=== PATIENT | male | born 1970 | race Caucasian/White ===

== ENCOUNTER 2020-04-10 19:06 | Emergency (ER) | payer SELFPAY ==
--- NOTE | 2020-04-10 19:57 | RAD REPORT ---
EXAM DESCRIPTION: RAD - Chest Single View - 04/10/2020 7:52 pm CLINICAL HISTORY: Congestion;Cough Chest pain. COMPARISON: No comparisons FINDINGS: Portable technique limits examination quality. The lungs are grossly clear. The heart is normal in size. No displaced fractures. IMPRESSION: No acute intrathoracic process suspected.
[2020-04-10 21:41] LABS: SARS-COV-2 RT PCR POSITIVE (NEGATIVE)
--- NOTE | 2020-04-10 22:04 | ER ---
Nurse's Notes [facility] Name: Dustin Cast Age: 49 yrs Sex: Male : 1970 Arrival Date: 04/10/2020 Time: 19:14 Bed 23 Private MD: Diagnosis: Coronavirus infection, unspecified Presentation: 04/10 19:18 Chief complaint: Patient states: productive cough and congestion x 1 week. Fever today. 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 Coronavirus screen: congestion, cough unrelated to allergies, fever, Client presents with at least one sign or symptom that may indicate coronavirus-19. Standard/surgical mask placed on the client. Provider contacted for isolation considerations. Ebola Screen: Patient negative for fever greater than or equal to 101.5 degrees Fahrenheit, and additional compatible Ebola Virus Disease symptoms Patient denies exposure to infectious person. Patient denies travel to an Ebola-affected area in the 21 days before illness onset. No symptoms or risks identified at this time. Initial Sepsis Screen: Does the patient meet any 2 criteria? No. Patient's initial sepsis screen is negative. Does the patient have a suspected source of infection? No. Patient's initial sepsis screen is negative. Risk Assessment: Do you want to hurt yourself or someone else? Patient reports no desire to harm self or others. Onset of symptoms was April 10, 2020. 19:18 Method Of Arrival: Ambulatory ca1 19:18 Acuity: ONIEL 3 ca1 Historical: - Allergies: 19:20 No Known Allergies; ca1 - Home Meds: 19:20 None [Active]; ca1 - PMHx: 19:20 None; ca1 - PSHx: 19:20 None; ca1 - Immunization history:: Flu vaccine is not up to date. - Social history:: Smoking status: Patient denies any tobacco usage or history of. Screenin:40 Abuse screen: Denies threats or abuse. Denies injuries from another. Nutritional zb screening: No deficits noted. Tuberculosis screening: No symptoms or risk factors identified. Fall Risk None identified. Assessment: 21:35 General: Appears in no apparent distress. uncomfortable, Behavior is calm, cooperative, zb appropriate for age, Reports chills for >3 days, feeling ill for > 3 days, fatigue for >3 days. Pain: Complains of pain in mid-sternal area Pain does not radiate. Pain currently is 3 out of 10 on a pain scale. Quality of pain is described as heavy, Pain began w/ cough Is episodic, Aggravated by coughing. Neuro: Level of Consciousness is awake, alert, obeys commands, Oriented to person, place, time, situation. Cardiovascular: Heart tones S1 S2 present Capillary refill < 3 seconds in bilateral fingers Patient's skin is warm and dry. Respiratory: Airway is patent Respiratory effort is even, unlabored, Respiratory pattern is regular, symmetrical, Breath sounds are clear bilaterally. Respiratory: Reports cough that is hacking, persistent pain with cough last Wednesday. GI: Abdomen is. : No signs and/or symptoms were reported regarding the genitourinary system. EENT: No signs and/or symptoms were reported regarding the EENT system. Derm: Skin is intact, is healthy with good turgor, Skin is dry, Skin is normal. Derm: Musculoskeletal: Range of motion: intact in all extremities. 21:42 Reassessment: notified provider that patient is covid positive. zb 22:10 Reassessment: d/c pending completion of IM injection time. zb Vital Signs: 19:18 BP 139 / 89; Pulse 89; Resp 16 S; Temp 97.7(TE); Pulse Ox 99% on R/A; Weight 77.11 kg ca1 (R); Height 5 ft. 7 in. (170.18 cm) (R); Pain 0/10; 21:41 BP 131 / 95; Pulse 73; Resp 16; Pulse Ox 97% on R/A; zb 19:18 Body Mass Index 26.63 (77.11 kg, 170.18 cm) ca1 ED Course: 19:14 Patient arrived in ED. ca1 19:19 Triage completed. ca1 19:20 Arm band placed on right wrist. ca1 19:52 Chest Single View In Process Unspecified. EDMS 21:13 Sachin Bennett PA is PHCP. jmm 21:13 Judson Quintanilla MD is Attending Physician. jmm 21:35 Eun Mcrae RN is Primary Nurse. zb 21:41 Patient has correct armband on for positive identification. Bed in low position. Call zb light in reach. Side rails up X 1. Pulse ox on. NIBP on. 22:20 No provider procedures requiring assistance completed. Patient did not have IV access zb during this emergency room visit. Administered Medications: 22:10 Drug: Decadron 10 mg Route: IM; Site: left deltoid; zb 22:20 Follow up: Response: No adverse reaction zb Outcome: 22:04 Discharge ordered by . leon 22:21 Discharged to home ambulatory. zb 22:21 Condition: stable 22:21 Discharge instructions given to patient, Instructed on discharge instructions, follow up and referral plans. medication usage, Demonstrated understanding of instructions, follow-up care, medications, Prescriptions given X 3. 22:29 Patient left the ED. zb Signatures: Dispatcher [employer] EDMS Sachin Bennett PA PA jmm Acob, Cheryl, RN RN Eun Mancilla RN RN ryder
--- NOTE | 2020-04-10 22:04 | EDPHYS ---
Physician Documentation [facility] Name: Dustin Cast Age: 49 yrs Sex: Male : 1970 Arrival Date: 04/10/2020 Time: 19:14 Bed 23 Private MD: ED Physician Judson Quintanilla HPI: 04/10 22:01 This 49 yrs old Male presents to ER via Ambulatory with complaints of Cough. jmm 22:01 The patient or guardian reports cough. Onset: The symptoms/episode began/occurred jmm gradually, 1 week(s) ago. Modifying factors: The symptoms are alleviated by nothing, the symptoms are aggravated by nothing. Associated signs and symptoms: Pertinent positives: fever, Pertinent negatives:. This is a 49 year old male with no chronic medical conditions that presents to the ED with complaints of cough and fever for approx 1 week. Patient states today he has felt most fatigued. Denies vomiting, diarrhea, or SOB. . Historical: - Allergies: 19:20 No Known Allergies; ca1 - Home Meds: 19:20 None [Active]; ca1 - PMHx: 19:20 None; ca1 - PSHx: 19:20 None; ca1 - Immunization history:: Flu vaccine is not up to date. - Social history:: Smoking status: Patient denies any tobacco usage or history of. ROS: 22:01 Constitutional: Positive for fatigue, fever. jmm 22:01 Respiratory: Positive for cough. 22:01 All other systems are negative. Exam: 22:01 Constitutional: This is a well developed, well nourished patient who is awake, alert, jmm and in no acute distress. Head/Face: atraumatic. Eyes: EOMI, no conjunctival erythema appreciated ENT: Moist Mucus Membranes Neck: Trachea midline, Supple Chest/axilla: Normal chest wall appearance and motion. Cardiovascular: Regular rate and rhythm. No edema appreciated Respiratory: Normal respirations, no respiratory distress appreciated Abdomen/GI: Non distended, soft Back: Normal ROM Skin: General appearance color normal MS/ Extremity: Moves all extremities, no obvious deformities appreciated, no edema noted to the lower extremities Neuro: Awake and alert, normal gait Psych: Behavior is normal, Mood is normal, Patient is cooperative and pleasant Vital Signs: 19:18 BP 139 / 89; Pulse 89; Resp 16 S; Temp 97.7(TE); Pulse Ox 99% on R/A; Weight 77.11 kg ca1 (R); Height 5 ft. 7 in. (170.18 cm) (R); Pain 0/10; 21:41 BP 131 / 95; Pulse 73; Resp 16; Pulse Ox 97% on R/A; zb 19:18 Body Mass Index 26.63 (77.11 kg, 170.18 cm) ca1 MDM: 21:14 Patient medically screened. emy 22:03 Data reviewed: vital signs, nurses notes. Counseling: I had a detailed discussion with leon the patient and/or guardian regarding: the presence of at least one elevated blood pressure reading (>120/80) during this emergency department visit, lab results, radiology results, the need for outpatient follow up, to return to the emergency department if symptoms worsen or persist or if there are any questions or concerns that arise at home. ED course: Patient is alert and non toxic in appearance in the ED. No signs of resp distress appreciated. Patient is given strict return precautions. patient understood and agrees with the plan of care. . 04/10 19:37 Order name: Chest Single View; Complete Time: 21:13 EDMS 04/10 21:42 Order name: COVID-19/FLU A+B; Complete Time: 21:49 EDMS Administered Medications: 22:10 Drug: Decadron 10 mg Route: IM; Site: left deltoid; zb 22:20 Follow up: Response: No adverse reaction zb Disposition: 04/11 06:45 Co-signature as Attending Physician, Judson Quintanilla MD I agree with the assessment and [facility] plan of care. Disposition: 04/10/20 22:04 Discharged to Home. Impression: Coronavirus infection, unspecified. - Condition is Stable. - Discharge Instructions: COVID-19. - Prescriptions for ivermectin 3 mg Oral tablet - take 6 tablet by ORAL route as directed one dose now and another dose on day 3; 12 tablet. Prednisone 20 mg Oral Tablet - take 3 tablet by ORAL route once daily for 5 days; 15 tablet. Albuterol Sulfate 90 mcg/actuation - inhale 1-2 puff by INHALATION route every 4-6 hours; 1 Inhaler. - Medication Reconciliation Form, Thank You Letter, Antibiotic Education, Prescription Opioid Use, Work release form form. - Follow up: Private Physician; When: 2 - 3 days; Reason: Recheck today's complaints, Continuance of care, Re-evaluation by your physician. Signatures: Dispatcher [employer] EDCT Judson Quintanilla MD MD cha Mickail, Joel, PA PA jmm Acob, Cheryl, RN RN Eun Mancilla RN RN zb Corrections: (The following items were deleted from the chart) 04/10 19:37 19:22 Chest Pa And Lat (2 Views)+RAD.RAD.BRZ ordered. EDMS EDMS 20:43 19:22 CORONAVIRUS+MR.LAB.BRZ ordered. EDMS EDMS 22:29 22:04 04/10/2020 22:04 Discharged to Home. Impression: Coronavirus infection, zb unspecified. Condition is Stable. Forms are Medication Reconciliation Form, Thank You Letter, Antibiotic Education, Prescription Opioid Use. Follow up: Private Physician; When: 2 - 3 days; Reason: Recheck today's complaints, Continuance of care, Re-evaluation by your physician. leon
[2020-04-10] MEDS ORDERED: dexAMETHasone 10 MG/ML VIAL ONE (22:26)
[2020-04-11 00:46] VITALS: TEMP 97.7
[2020-04-11 00:47] VITALS: BP 131/95; O2SAT 97
== END 2020-04-10 22:29 | disposition home or self-care (01) ==
LOC: ER 19:06
DX: U07.1 COVID-19 (principal)
CPT/HCPCS: 0240U; 71045; 96372; 99284; J1100

== ENCOUNTER 2020-04-16 07:21 | Emergency (ER) | payer SELFPAY ==
[2020-04-16] MEDS ORDERED: METHYLPREDNISOLONE 125 MG INJ ONE (08:06)
[2020-04-16 08:07] LABS: Absolute Lymphocytes (CBC) 0.6 K/uL (0.7-4.9); Basophils % 0.1 % (0-1.3); Hematocrit 36.5 % (39.6-49.0); Lymphocytes % 15.9 % (15.3-44.8); MPV 7.1 fL (7.6-11.3); RBC Red Blood Cell Count 4.04 M/uL (4.33-5.43)
[2020-04-16 08:10] LABS: Protime INR 1.25
--- NOTE | 2020-04-16 08:22 | RAD REPORT ---
EXAM DESCRIPTION: CT - Chest For Pe Angio - 04/16/2020 8:08 am CLINICAL HISTORY: Cough COMPARISON: None. TECHNIQUE: Dynamically enhanced axial 3 mm thick images of the chest were obtained during administra tion of <100> mL Isovue 370 IV contrast. Coronal and oblique reconstruction images were generated and reviewed. Exam utilizes a protocol for optimal evaluation of pulmonary arterial tree. Maximum intensity projections 3D imaging was utilized All CT scans are performed using dose optimization technique as appropriate and may include automated exposure control or mA/KV adjustment according to patient size. FINDINGS: A pulmonary embolus is not seen. A thoracic aortic aneurysm is not noted. A pleural effusion is not seen. A pericardial effusion is not seen. Moderate to marked bilateral pulmonary ground-glass opacities IMPRESSION: Negative for a pulmonary embolism. Moderate to marked bilateral pulmonary ground-glass opacities can be seen with Covid pneumonia
[2020-04-16 08:25] LABS: ALT/SGPT 71 U/L (12-78); AST/SGOT 59 U/L (15-37); Albumin 2.9 g/dL (3.4-5.0); Alkaline Phosphatase 84 U/L (45-117); BUN Blood Urea Nitrogen 14 mg/dL (7-18); Bicarbonate 30 mmol/L (21-32); Bilirubin Direct 0.1 mg/dL (0-0.2); Bilirubin Total 0.4 mg/dL (0.2-1.0); Ferritin 667.7 ng/mL (26-388); Glucose Level 105 mg/dL (74-106); Potassium 3.4 mmol/L (3.5-5.1); Sodium Level 140 mmol/L (136-145); Troponin (Emerg Dept Use Only) < 0.02 ng/mL (0.0-0.045)
--- NOTE | 2020-04-16 08:53 | RAD REPORT ---
EXAM DESCRIPTION: [place] Single View04/16/2020 8:38 am CLINICAL HISTORY: Cough COMPARISON: March 2020 FINDINGS: Moderate to marked bilateral alveolar opacities within the lungs Heart is normal size IMPRESSION: Moderate to marked bilateral pneumonia
--- NOTE | 2020-04-16 09:13 | ER ---
Nurse's Notes [facility] Name: Dustin Cast Age: 50 yrs Sex: Male : 1970 Arrival Date: 04/16/2020 Time: 07:24 Bed 8 Private MD: Diagnosis: Coronavirus infection, unspecified;Viral pneumonia, not elsewhere classified Presentation: 04/16 07:36 Chief complaint: Patient states: Pt tested COVID positive on 04/10. PT states worsening bw symptoms-SOB, sternal CP, and cough the last 2 days. Coronavirus screen: Client denies travel out of the [place] in the last 14 days. cough unrelated to allergies, difficulty breathing, shortness of breath, Client presents with at least one sign or symptom that may indicate coronavirus-19. Provider contacted for isolation considerations. Client reports previous positive COVID test result. Date of collection: April 10, 2020. Ebola Screen: No symptoms or risks identified at this time. Initial Sepsis Screen: Does the patient meet any 2 criteria? No. Patient's initial sepsis screen is negative. Does the patient have a suspected source of infection? Yes: Other: pt states he has pneumonia. Risk Assessment: Do you want to hurt yourself or someone else? Patient reports no desire to harm self or others. Onset of symptoms was April 14, 2020. 07:36 Method Of Arrival: Ambulatory 07:36 Acuity: ONIEL 3 bw Triage Assessment: 07:43 General: Appears in no apparent distress. uncomfortable, Behavior is calm, cooperative, bw appropriate for age. Pain: Complains of pain in chest Pain does not radiate. Pain currently is 8 out of 10 on a pain scale. Pain began 2-3 days ago. Is intermittent. EENT: No deficits noted. No signs and/or symptoms were reported regarding the EENT system. Neuro: No deficits noted. Cardiovascular: Reports chest pain, fatigue, nausea, shortness of breath, vomiting. Respiratory: Reports shortness of breath cough that is pain with respiration Onset: The symptoms/episode began/occurred 2 days ago, the patient has moderate shortness of breath. GI: Reports nausea, vomiting. Historical: - Allergies: 07:43 No Known Allergies; bw - PMHx: 09:16 None; bw - Immunization history:: Adult Immunizations up to date. - Social history:: Smoking status: Patient denies any tobacco usage or history of. Patient/guardian denies using street drugs, tobacco products. - Family history:: not pertinent. - Hospitalizations: : No recent hospitalization is reported. Screenin:45 Abuse screen: Denies threats or abuse. Nutritional screening: No deficits noted. bw 07:45 Tuberculosis screening: No symptoms or risk factors identified. Fall Risk None bw identified. Assessment: 07:45 General: see triage assessment . bw 09:00 Reassessment: Patient appears in no apparent distress at this time. Patient and/or bw family updated on plan of care and expected duration. Pain level reassessed. Patient is alert, oriented x 3, equal unlabored respirations, skin warm/dry/pink. Patient states feeling better. Vital Signs: 07:36 BP 139 / 96; Pulse 87; Resp 31; Temp 98.2; Pulse Ox 92% ; Weight 81.65 kg; Height 5 ft. bw 7 in. (170.18 cm); Pain 8/10; 08:46 BP 128 / 84; Pulse 74; Resp 27; Pulse Ox 93% on R/A; bw 07:36 Body Mass Index 28.19 (81.65 kg, 170.18 cm) bw ED Course: 07:24 Patient arrived in ED. mr 07:27 Yimi Ibarra MD is Attending Physician. rn 07:36 Kristal Jordan RN is Primary Nurse. bw 07:41 Triage completed. bw 07:43 Arm band placed on right wrist. Labs ordered per protocol. Drawn by ED staff. X-ray bw ordered. 07:45 Patient has correct armband on for positive identification. Placed in gown. Bed in low bw position. Call light in reach. monitoring specialist on. Pulse ox on. NIBP on. Warm blanket given. 07:50 Lab(s) recollected, by ED staff, sent to lab. First set of blood cultures drawn. [id number] Inserted saline lock: 20 gauge in right antecubital area, using aseptic technique. Blood collected. 08:02 EKG done, by ED staff, reviewed by Yimi Ibarra MD. bw 08:08 CT Chest For PE Angio In Process Unspecified. EDMS 08:12 Blood Culture Adult (2) Sent. bw 08:12 BMP Sent. bw 08:12 C-Reactive Protein Sent. bw 08:12 CBC with Diff Sent. bw 08:12 Ferritin Sent. bw 08:12 Lactate Sent. bw 08:38 CXR XRAY In Process Unspecified. EDMS 09:12 Raghu Martinez MD is Referral Physician. rn 09:29 No provider procedures requiring assistance completed. IV discontinued, intact, bw bleeding controlled, No redness/swelling at site. Pressure dressing applied. Administered Medications: 07:50 Drug: SOLU-Medrol 125 mg Route: IVP; Site: right antecubital; bw 08:00 Follow up: Response: No adverse reaction bw Outcome: 09:12 Discharge ordered by MD. rn 09:29 Discharged to home ambulatory. bw 09:29 Condition: stable 09:29 Discharge instructions given to patient, Instructed on discharge instructions, follow up and referral plans. medication usage, Demonstrated understanding of instructions, follow-up care, medications, Prescriptions given X 3. 09:32 Patient left the ED. Signatures: Dispatcher [employer] EDTX Antoinette Leonard Yimi Ibarra MD MD rn Jackson, Kandis [id number] Kristal Jordan RN RN bw Corrections: (The following items were deleted from the chart) 09:16 07:45 Reassessment: Patient appears in no apparent distress at this time. Patient bw and/or family updated on plan of care and expected duration. Pain level reassessed. Patient is alert, oriented x 3, equal unlabored respirations, skin warm/dry/pink. Patient states feeling better. bw
--- NOTE | 2020-04-16 09:13 | EDPHYS ---
Physician Documentation [facility] Name: Dustin Cast Age: 50 yrs Sex: Male : 1970 Arrival Date: 04/16/2020 Time: 07:24 Bed 8 Private MD: ED Physician Yimi Ibarra HPI: 04/16 07:51 This 50 yrs old Male presents to ER via Ambulatory with complaints of COVID+, rn Breathing Difficulty, Cough. 07:51 The patient has shortness of breath at rest, with light activity. Onset: The rn symptoms/episode began/occurred 1 week(s) ago. Duration: The symptoms are intermittent. The patient's shortness of breath is aggravated by exertion, light activity, talking, walking. Associated signs and symptoms: Pertinent positives: productive cough, Pertinent negatives: fever, hemoptysis. Severity of symptoms: At their worst the symptoms were moderate in the emergency department the symptoms are unchanged. The patient has not experienced similar symptoms in the past. The patient has been recently seen at the [facility] Emergency Department. Historical: - Allergies: 07:43 No Known Allergies; bw - PMHx: 09:16 None; bw - Immunization history:: Adult Immunizations up to date. - Social history:: Smoking status: Patient denies any tobacco usage or history of. Patient/guardian denies using street drugs, tobacco products. - Family history:: not pertinent. - Hospitalizations: : No recent hospitalization is reported. ROS: 07:51 Constitutional: Negative for fever, chills, and weight loss, Eyes: Negative for injury, rn pain, redness, and discharge, Neck: Negative for injury, pain, and swelling, Cardiovascular: Negative for chest pain, and edema, Respiratory: + cough and sob Abdomen/GI: Negative for abdominal pain, nausea, vomiting, diarrhea, and constipation, Back: Negative for injury and pain, MS/Extremity: Negative for injury and deformity, Skin: Negative for injury, rash, and discoloration, Neuro: Negative for headache, numbness, tingling, and seizure. Exam: 07:51 Constitutional: This is a well developed, well nourished patient who is awake, alert, rn and in no acute distress. Head/Face: Normocephalic, atraumatic. ENT: No stridor Cardiovascular: Regular rate and rhythm. No pulse deficits. Respiratory: + mild to moderate tachypnea, no retractions Abdomen/GI: soft, non-tender Skin: Warm, dry MS/ Extremity: Pulses equal, no cyanosis. Neurovascular intact. Full, normal range of motion. Equal circumference. Neuro: Awake and alert, GCS 15 08:01 ECG was reviewed by the Attending Physician. rn Vital Signs: 07:36 BP 139 / 96; Pulse 87; Resp 31; Temp 98.2; Pulse Ox 92% ; Weight 81.65 kg; Height 5 ft. bw 7 in. (170.18 cm); Pain 8/10; 08:46 BP 128 / 84; Pulse 74; Resp 27; Pulse Ox 93% on R/A; bw 07:36 Body Mass Index 28.19 (81.65 kg, 170.18 cm) bw MDM: 07:27 Patient medically screened. rn 09:09 Differential diagnosis: pneumonia, Pneumothorax pulmonary edema, Pulmonary Embolism rn reactive airway disease, COVID pneumonia. Data reviewed: vital signs, nurses notes, lab test result(s), EKG, radiologic studies, CT scan, plain films, and as a result, I will discharge patient. Counseling: I had a detailed discussion with the patient and/or guardian regarding: the historical points, exam findings, and any diagnostic results supporting the discharge/admit diagnosis, lab results, radiology results, the need for outpatient follow up, to return to the emergency department if symptoms worsen or persist or if there are any questions or concerns that arise at home. Response to treatment: the patient's symptoms have mildly improved after treatment, and as a result, I will discharge patient. Special discussion: I discussed with the patient/guardian in detail that at this point there is no indication for admission to the hospital. It is understood, however, that if the symptoms persist or worsen the patient needs to return immediately for re-evaluation. ED course: Pt with moderate covid pneumonia, CT PE neg for PE, oxygen saturation to 93% at lowest, denies dyspnea. Offered observation given tachypnea, patient declines, states would rather go home since feels better, reports feels reassured and was scared not knowing anything at home. Return precautions given and understood. . 04/16 07:37 Order name: Blood Culture Adult (2) rn 04/16 07:37 Order name: BMP rn 03/02 07:37 Order name: C-Reactive Protein rn 04/16 07:37 Order name: CBC with Diff rn 04/16 07:37 Order name: Ferritin rn 04/16 07:37 Order name: Lactate rn 04/16 07:37 Order name: LFT's; Complete Time: 08:58 rn 04/16 07:37 Order name: Procalcitonin; Complete Time: 08:58 rn 04/16 07:37 Order name: PT-INR; Complete Time: 08:58 rn 04/16 07:37 Order name: Ptt, Activated; Complete Time: 08:58 rn 04/16 07:37 Order name: Troponin (emerg Dept Use Only); Complete Time: 08:58 rn 04/16 07:37 Order name: Blood Culture EDMS 04/16 07:37 Order name: Basic Metabolic Panel; Complete Time: 08:58 EDMS 04/16 07:38 Order name: C-Reactive Protein; Complete Time: 08:58 EDMS 04/16 07:37 Order name: CXR XRAY; Complete Time: 08:58 rn 04/16 07:37 Order name: EKG; Complete Time: 07:38 rn 04/16 07:37 Order name: Cardiac monitoring; Complete Time: 08:11 rn 04/16 07:37 Order name: Droplet/Contact Precautions; Complete Time: 08:11 rn 04/16 07:37 Order name: EKG - Nurse/Tech; Complete Time: 08:12 rn 04/16 07:37 Order name: IV Start; Complete Time: 08:12 rn 04/16 07:37 Order name: Labs collected and sent; Complete Time: 08:12 rn 04/16 07:37 Order name: O2 Per Protocol; Complete Time: 08:12 rn 04/16 07:37 Order name: O2 Sat Monitoring; Complete Time: 08:12 rn 04/16 07:37 Order name: CT Chest For PE Angio; Complete Time: 08:58 rn 04/16 07:38 Order name: CBC with Automated Diff; Complete Time: 08:58 EDMS 04/16 07:38 Order name: Ferritin; Complete Time: 08:58 EDMS 04/16 07:38 Order name: Lactate; Complete Time: 08:58 EDMS EC:01 Rate is 86 beats/min. Rhythm is regular. QRS [place] is Normal. [place] interval is normal. QRS rn interval is normal. QT interval is normal. No Q waves. T waves are Normal. No ST changes noted. Clinical impression: Normal ECG. Interpreted by me. Reviewed by me. Administered Medications: 07:50 Drug: SOLU-Medrol 125 mg Route: IVP; Site: right antecubital; bw 08:00 Follow up: Response: No adverse reaction Disposition: 04/16/20 09:12 Discharged to Home. Impression: Coronavirus infection, unspecified, Viral pneumonia, not elsewhere classified. - Condition is Stable. - Discharge Instructions: Community-Acquired Pneumonia, Adult, COVID-19. - Prescriptions for Zithromax Z- Jonathan 250 mg Oral Tablet - take 1 tablet by ORAL route as directed for 5 days Day 1 - take two (2) tablets one time. Day 2, 3, 4 , 5 take one (1) tablet once daily.; 6 tablet. Prednisone 20 mg Oral Tablet - take 1 tablet by ORAL route as directed for 14 days Take 2 tablets by mouth daily for 7 days, followed by 1 tablet by mouth daily for 7 days, total of 14 days.; 21 tablet. Albuterol Sulfate 90 mcg/actuation - inhale 1-2 puff by INHALATION route every 4-6 hours; 1 Inhaler. - Medication Reconciliation Form, Thank You Letter, Antibiotic Education, Prescription Opioid Use, Work release form form. - Follow up: Raghu Martinez MD; When: 2 - 3 days; Reason: Recheck today's complaints, Re-evaluation by your physician. - Problem is an ongoing problem. - Symptoms have improved. Signatures: Dispatcher [employer] EDMS Yimi Ibarra MD MD rn Webb, Bethany, RN RN Corrections: (The following items were deleted from the chart) 09:32 09:12 04/16/2020 09:12 Discharged to Home. Impression: Coronavirus infection, bw unspecified; Viral pneumonia, not elsewhere classified. Condition is Stable. Forms are Medication Reconciliation Form, Thank You Letter, Antibiotic Education, Prescription Opioid Use. Follow up: Raghu Martinez; When: 2 - 3 days; Reason: Recheck today's complaints, Re-evaluation by your physician. Problem is an ongoing problem. Symptoms have improved. rn
[2020-04-16 09:39] VITALS: TEMP 98.2
[2020-04-16 09:40] VITALS: BP 128/84; O2SAT 93
--- NOTE | 2020-04-16 12:28 | EKG ---
Test Date: 2020-04-16 Test Time: 07:59:39 [employer]: ELVIE MEASUREMENT RESULTS: Intervals: Rate: 86 NM: 122 QRSD: 84 QT: 350 QTc: 418 [place]: P: 28 NM: 122 QRS: 26 T: 31 INTERPRETIVE STATEMENTS: Normal sinus rhythm Normal ECG No previous ECG available for comparison Electronically Signed On 04-16-20 12:27:39 MANAGER VALUATION by Richard Zelaya
== END 2020-04-16 09:32 | disposition home or self-care (01) ==
LOC: ER 07:21
DX: U07.1 COVID-19 (principal); J12.82 Pneumonia due to coronavirus disease 2019
CPT/HCPCS: 36415; 71045; 71275; 80048; 80076; 82565; 82728; 83605; 84145; 84484; 85025; 85610; 85730; 86140; 87040; 93005; 96374; 99284; J2930; Q9967